=== PATIENT | male | born 1950 | race Caucasian/White ===

== ENCOUNTER → 2017-10-22 | Outpatient (CLI) | payer MEDICARE ==
[~2017-10-22] MED LIST: ASPI-650 PO; ASPI325T17 PO; ATOR20TA PO; ATOR20TA9 PO; HYDR12.58 PO; LISI40TA PO; LISI5TAB7 PO; NICO-486 TD
== END | disposition home or self-care (01) ==
LOC: CFH 10:24
PROVIDERS: ATTEND Internal Medicine
DX: M79.605 Pain in left leg (principal); R60.0 Localized edema; M79.89 Other specified soft tissue disorders

== ENCOUNTER → 2019-10-13 | Outpatient (CLI) | payer MEDICARE ==
[~2019-10-13] MED LIST changes: +ATOR20TA37 PO; -ATOR20TA9 PO; -HYDR12.58 PO; +HYDROCHLOROTH12.5 MG PO; +OMNIPAQUE 350 MG/ML, 150 ML BOTTLE ONE
== END | disposition home or self-care (01) ==
LOC: CFH 10:12
PROVIDERS: ATTEND Internal Medicine
DX: M16.12 Unilateral primary osteoarthritis, left hip (principal); M25.852 Other specified joint disorders, left hip; M25.452 Effusion, left hip
CPT/HCPCS: 73701; Q9967

== ENCOUNTER 2020-01-08 05:38 | Day surgery (SDC) | payer MEDICARE ==
[2020-01-07 08:20] LABS: BASOPHILS # (AUTO) 0.06 x10^3/uL (0-0.1); BASOPHILS % (AUTO) 1 % (0-1); EOSINOPHILS # (AUTO) 0.26 x10^3/uL (0-0.4); EOSINOPHILS % (AUTO) 3 % (1-7); LYMPHOCYTES # (AUTO) 2.48 x10^3/uL (1-3.4); LYMPHOCYTES % (AUTO) 29 % (22-44); MD NO; MEAN CORPUSCULAR HEMOGLOBIN 29.8 pg (27.5-34.5); MEAN CORPUSCULAR HGB CONC 33.2 g/dL (33.2-36.2); MEAN CORPUSCULAR VOLUME 89.8 fL (81-97); MEAN PLATELET VOLUME 7.6 fL (7.4-10.4); MONOCYTES # (AUTO) 0.59 x10^3/uL (0.2-0.8); MONOCYTES % (AUTO) 7 % (2-9); NEUTROPHILS # (AUTO) 5.35 x10^3/uL (1.8-6.8); NEUTROPHILS % (AUTO) 61 % (42-75); PLATELET COUNT 394 x10^3/uL (130-400); RED CELL DISTRIBUTION WIDTH 13.7 % (9.4-14.8)
[2020-01-07 08:27] LABS: INTERNATIONAL NORMALIZED RATIO 0.94 (0.93-1.1)
[2020-01-07 08:29] LABS: ALANINE AMINOTRANSFERASE 50 U/L (12-78); ALBUMIN 3.3 g/dL (3.4-5.0); ANION GAP 8 mmol/L (5-15); CALCIUM 9.2 mg/dL (8.5-10.1); CHLORIDE 108 mmol/L (98-107); CREATININE 1.11 mg/dL (0.7-1.3)
[2020-01-07 08:31] LABS: ALKALINE PHOSPHATASE 57 U/L (45-117); BILIRUBIN,TOTAL 0.4 mg/dL (0.2-1.0); TOTAL PROTEIN 7.4 g/dL (6.4-8.2)
[~2020-01-08] VITALS: Ht 175.3 cm; Wt 99.0 kg
[~2020-01-08 05:38] MED LIST changes: +ASPI81TA45 PO; +MELO15TA24 PO; -OMNIPAQUE 350 MG/ML, 150 ML BOTTLE ONE
[2020-01-08] MEDS ORDERED: LACTATED RINGERS 1,000 ML IV SCH (06:03)
[2020-01-08] MEDS ORDERED: EPINEPHRINE 1 MG/ML, 1ML ONE (06:11)
[2020-01-08] MEDS ORDERED: ROPIvacaine/PF 0.5%, 30 ML ONE (06:11)
[2020-01-08] MEDS ORDERED: TRANEXAMIC ACID 100 MG/ML, 10ML ONE ×2 (06:11)
[2020-01-08] MEDS ORDERED: KETOROLAC 60 MG/2 ML ONE (06:11)
[2020-01-08] MEDS ORDERED: SODIUM CHLORIDE 0.9% 50 ML ONE (06:11)
[2020-01-08] MEDS ORDERED: VANCOMYCIN 1,000 MG ONE (06:11)
[2020-01-08 06:15] VITALS: BP 149/95
[2020-01-08] MEDS ORDERED: LIDOCAINE-MPF 1%, 2ML ONE (06:21)
[2020-01-08] MEDS ORDERED: CHLORHEXIDINE 15 ML UDC MM ONE (06:30)
[2020-01-08] MEDS ORDERED: GABAPENTIN 300 MG CAPSULE PO ONE (06:30)
[2020-01-08] MEDS ORDERED: ACETAMINOPHEN 500 MG TABLET PO ONE (06:30)
[2020-01-08] MEDS ORDERED: ROCURONIUM 10MG/ML,5ML ONE (06:32)
[2020-01-08] MEDS ORDERED: ONDANSETRON 2MG/ML, 2ML ONE (06:32)
[2020-01-08] MEDS ORDERED: MIDAZOLAM 1 MG/ML, 2ML ONE (06:32)
[2020-01-08] MEDS ORDERED: PROPOFOL 10 MG/ML, 20ML ONE (06:32)
[2020-01-08] MEDS ORDERED: SUCCINYLCHOLINE 20 MG/ML, 10ML ONE (06:32)
[2020-01-08] MEDS ORDERED: DEXAMETHASONE 4 MG/ML, 1ML ONE ×2 (06:32)
[2020-01-08] MEDS ORDERED: FENTANYL PF 250 MCG/5ML ONE (06:32)
[2020-01-08] MEDS ORDERED: CEFAZOLIN 1,000 MG ONE (07:01)
[2020-01-08] MEDS ORDERED: DIAZEPAM 5 MG/ML, 2ML IVPush PRN (07:30)
[2020-01-08] MEDS ORDERED: HYDROmorphone 1 MG/ML, 1ML INJ IVPush PRN (07:30)
[2020-01-08] MEDS ORDERED: hydrALAzine 20 MG/ML, 1ML IV PRN (07:30)
[2020-01-08] MEDS ORDERED: LABETALOL 5MG/ML, 20ML IV PRN (07:30)
[2020-01-08] MEDS ORDERED: OXYcodone 5 MG/5 ML ORAL.SOL UDC PO PRN (07:30)
[2020-01-08] MEDS ORDERED: PROMETHAZINE 25 MG/ML, 1ML IVPush PRN (07:30)
[2020-01-08] MEDS ORDERED: ONDANSETRON 2MG/ML, 2ML IVPush PRN (07:30)
[2020-01-08] MEDS ORDERED: MEPERIDINE/PF 25MG/0.5ML IVPush PRN (07:30)
[2020-01-08] MEDS ORDERED: OXYcodone 5 MG/5 ML ORAL.SOL UDC ONE (08:12)
[2020-01-08] MEDS ORDERED: FENTANYL PF 100 MCG/2ML ONE ×2 (08:12→08:37)
[2020-01-08] MEDS: FENTANYL PF 100 MCG/2ML IV PRN ×3 (08:13→08:38)
[2020-01-08] MEDS ORDERED: DOCUSATE 100 MG CAPSULE PO SCH (09:00)
[2020-01-08] MEDS ORDERED: SENNA/DOCUSATE TABLET PO PRN (09:00)
[2020-01-08] MEDS ORDERED: MAGNESIUM HYDROXIDE 8%, 30ML UDC PO PRN (09:00)
[2020-01-08] MEDS ORDERED: HYDROCHLOROTHIAZIDE 12.5 MG CAPSULE PO SCH (09:00)
[2020-01-08] MEDS ORDERED: LISINOPRIL 40 MG TABLET PO SCH (09:00)
[2020-01-08] MEDS ORDERED: BISACODYL 10 MG SUPP PR PRN (09:00)
[2020-01-08] MEDS ORDERED: ONDANSETRON ODT 4 MG PO PRN (09:30)
[2020-01-08] MEDS ORDERED: HYDROcodone/APAP 5/325 TABLET PO PRN (09:30)
[2020-01-08] MEDS ORDERED: NS + 20MEQ KCL 1,000 ML IV SCH (09:30)
[2020-01-08] MEDS ORDERED: OXYcodone IR 5MG TABLET PO PRN (09:30)
[2020-01-08] MEDS ORDERED: DIPHENHYDRAMINE 25 MG CAPSULE PO PRN (09:30)
[2020-01-08] MEDS ORDERED: ONDANSETRON 2MG/ML, 2ML IV PRN (09:30)
[2020-01-08] MEDS ORDERED: ACETAMINOPHEN 325 MG TABLET PO PRN (12:30)
[2020-01-08 14:37] VITALS: BP 130/80
[2020-01-08] MEDS ORDERED: CEFAZOLIN PMX 2GM/50ML 50 ML IVPB SCH (15:30)
[2020-01-08] MEDS ORDERED: ASPIRIN 81 MG TABLET EC PO SCH (18:00)
[2020-01-08] MEDS ORDERED: ATORVASTATIN 20 MG TABLET PO SCH (21:00)
[2020-01-08] MEDS ORDERED: ZOLPIDEM 5MG TABLET PO PRN (21:00)
[2020-01-09] MEDS ORDERED: DEXAMETHASONE 4 MG/ML, 1ML IVPush SCH (06:00)
== END 2020-01-08 15:27 | disposition home or self-care (01) ==
LOC: OUT 05:38 → EDSTATUS 07:00 → 4NE 09:15 → OUT 15:27
PROVIDERS: ATTEND Orthopaedic Surgery
DX: M16.12 Unilateral primary osteoarthritis, left hip (principal); M25.752 Osteophyte, left hip; I10 Essential (primary) hypertension; Z79.01 Long term (current) use of anticoagulants; Z79.1 Long term (current) use of non-steroidal anti-inflammatories (NSAID); Z79.899 Other long term (current) drug therapy; Z85.828 Personal history of other malignant neoplasm of skin; Z87.891 Personal history of nicotine dependence
CPT/HCPCS: 27130; 36415; 72170; 73501; 80053; 83036; 85025; 85610; 85730; 87081; 87147; 93005; 97161; 97165; C1713; C1776; J0171; J0330; J0690; J1100; J1885; J2250; J2405; J2704; J2795; J3010; J3370; J7120; U0001; 76000; G0378

== ENCOUNTER → 2020-06-17 | Outpatient (CLI) | payer MEDICARE | END | disposition home or self-care (01) | LOC: CFH 09:32 | DX: Z12.2 Encounter for screening for malignant neoplasm of respiratory organs (principal); I25.10 Atherosclerotic heart disease of native coronary artery without angina pectoris; N28.1 Cyst of kidney, acquired; Z87.891 Personal history of nicotine dependence | CPT/HCPCS: 76706; G0297 ==

== ENCOUNTER 2021-05-12 07:50 | Outpatient (CLI) | payer MEDICARE ==
[~2021-05-12 07:50] MED LIST changes: -ASPI-650 PO; +ASPI325T20 PO; -LISI40TA PO; +LISI40TA9 PO
[2021-05-12 08:19] LABS: BASOPHILS % (AUTO) 1 % (0-1); EOSINOPHILS % (AUTO) 2 % (1-7); LYMPHOCYTES % (AUTO) 24 % (22-44); MEAN CORPUSCULAR HEMOGLOBIN 31.2 pg (27.5-34.5); MEAN CORPUSCULAR HGB CONC 34.5 g/dL (33.2-36.2); MEAN PLATELET VOLUME 7.6 fL (7.4-10.4); MONOCYTES % (AUTO) 7 % (2-9); NEUTROPHILS % (AUTO) 65 % (42-75); PLATELET COUNT 262 x10^3/uL (130-400); RED BLOOD COUNT 5.83 x10^6/uL (4.38-5.82); RED CELL DISTRIBUTION WIDTH 14.2 % (9.4-14.8)
[2021-05-12 08:31] LABS: ALBUMIN 3.8 g/dL (3.4-5.0); ANION GAP 5 mmol/L (5-15); CALCIUM 9.5 mg/dL (8.5-10.1); CHLORIDE 105 mmol/L (98-107); MICROSCOPIC NOT IND
[2021-05-12 08:35] LABS: ALANINE AMINOTRANSFERASE 35 U/L (12-78); ALKALINE PHOSPHATASE 41 U/L (45-117); BILIRUBIN,TOTAL 0.4 mg/dL (0.2-1.0); CHOL/HDL RATIO 2.8; CHOLESTEROL, TOTAL 128 mg/dL (140-239); CREATININE 1.05 mg/dL (0.7-1.3); HDL CHOL % 35 % (26-37); HDL CHOLESTEROL (DIRECT) 45 mg/dL (40-60); LDL CHOLESTEROL,CALCULATED 69 mg/dL (54-169); LDL/HDL RATIO 1.5 (0.5-3.0); TOTAL PROTEIN 7.5 g/dL (6.4-8.2); TRIGLYCERIDES 72 mg/dL (50-200); VLDL CHOLESTEROL 14 mg/dL (0-25)
== END 2021-05-12 23:59 | disposition home or self-care (01) ==
LOC: LAB 07:50
PROVIDERS: ATTEND Internal Medicine
DX: I10 Essential (primary) hypertension (principal); R97.20 Elevated prostate specific antigen [PSA]; E55.9 Vitamin D deficiency, unspecified; R73.03 Prediabetes; E78.2 Mixed hyperlipidemia; I83.029 Varicose veins of left lower extremity with ulcer of unspecified site; K75.81 Nonalcoholic steatohepatitis (NASH); M16.12 Unilateral primary osteoarthritis, left hip
CPT/HCPCS: 36415; 80053; 80061; 81003; 82306; 83036; 84153; 85025